=== PATIENT | male | born 1945 | race Two or more races ===

== ENCOUNTER 2020-11-24 11:20 | Inpatient (IN) | payer OTHER ==
[~2020-11-24] VITALS: Ht 172.7 cm; Wt 83.9 kg
[2020-12-01] MEDS ORDERED: OMEGA 3 1,0001 EACH PO (14:56)
[2020-12-01] MEDS ORDERED: MEDROLPACK PO (14:57)
== END 2020-12-01 15:19 | disposition home or self-care (01) | DRG 177 ==
LOC: ER 11:20 → MEDJ 21:22
PROVIDERS: ADMIT Internal Medicine; ATTEND Internal Medicine
PROC: 3E0F7SF Introduction of Other Gas into Respiratory Tract, Via Natural or Artificial Opening (ICD-10-PCS; principal; 2020-11-24)
PROC: 4A033R1 Measurement of Arterial Saturation, Peripheral, Percutaneous Approach (ICD-10-PCS; 2020-11-24)
PROC: 8E0ZXY6 Isolation (ICD-10-PCS; 2020-11-24)
PROC: CB2YYZZ Tomographic (Tomo) Nuclear Medicine Imaging of Respiratory System using Other Radionuclide (ICD-10-PCS; 2020-11-24)
PROC: XW033E5 Introduction of Remdesivir Anti-infective into Peripheral Vein, Percutaneous Approach, New Technology Group 5 (ICD-10-PCS; 2020-11-25)
PROC: XW0DXM6 Introduction of Baricitinib into Mouth and Pharynx, External Approach, New Technology Group 6 (ICD-10-PCS; 2020-11-25)
DX: U07.1 COVID-19 (principal); J12.82 Pneumonia due to coronavirus disease 2019; N17.8 Other acute kidney failure; R09.02 Hypoxemia; I12.9 Hypertensive chronic kidney disease with stage 1 through stage 4 chronic kidney disease, or unspecified chronic kidney disease; E11.22 Type 2 diabetes mellitus with diabetic chronic kidney disease; N18.9 Chronic kidney disease, unspecified; E11.65 Type 2 diabetes mellitus with hyperglycemia; R43.0 Anosmia; Z20.822 Contact with and (suspected) exposure to COVID-19; Z79.4 Long term (current) use of insulin